=== PATIENT | female | born 1955 | race Two or more races ===

== ENCOUNTER 2018-11-11 05:45 | Day surgery (SDC) | payer OTHER ==
[~2018-11-11 05:45] MED LIST: FORTAMET1000 MG PO; GLIPIZIDE ER5 MG PO; LOTREL 5-40 MG1 EACH PO; SYNTHROID50 MCG PO
[2018-11-11] MEDS ORDERED: PERCOCET 5-3251 EACH PO ×2 (11:14)
[2018-11-11] MEDS ORDERED: NEURONTIN300 MG PO ×2 (11:15)
[2018-11-11] MEDS ORDERED: POLY119PG PO ×2 (11:15)
== END 2018-11-11 15:10 | disposition home or self-care (01) ==
LOC: CIR.AMB 05:45
DX: K42.0 Umbilical hernia with obstruction, without gangrene (principal); K43.6 Other and unspecified ventral hernia with obstruction, without gangrene

== ENCOUNTER 2018-11-16 08:34 | Emergency (ER) | payer OTHER ==
[~2018-11-16] VITALS: Ht 154.9 cm; Wt 111.1 kg
[~2018-11-16 08:34] MED LIST changes: +NEURONTIN300 MG PO; +PERCOCET 5-3251 EACH PO; +POLY119PG PO
== END 2018-11-16 12:33 | disposition home or self-care (01) ==
LOC: ER 08:34
DX: R50.82 Postprocedural fever (principal)